=== PATIENT | male | born 2000 | race Caucasian/White ===

== ENCOUNTER 2022-04-17 13:04 | Inpatient (IN) | payer OTHER ==
[2022-04-17] MEDS ORDERED: ONDANSETRON 4 MG/2 ML VIAL IVPUSH ONE ×2 (14:26→18:25)
[2022-04-17] MEDS ORDERED: SODIUM CHLORIDE 0.9% 500 ML INFUS.BAG IV ONE ×3 (14:26→17:23)
[2022-04-17] MEDS ORDERED: ACETAMINOPHEN 1000 MG/100 ML BAG IVPB ONE (14:26)
[2022-04-17] MEDS ORDERED: ONDANSETRON 4 MG/2 ML VIAL ONE ×2 (14:49→18:35)
[2022-04-17] MEDS ORDERED: ACETAMINOPHEN INJECTION 100 ML IVPB ONE (14:49)
[2022-04-17 15:23] LABS: VENOUS BASE EXCESS -3.2 mmol/L (-2-2); VENOUS O2 SATURATION 49.9 % (70-80); VENOUS PCO2 35.3 mmHg (38-52); VENOUS PH 7.39 (7.310-7.410)
[2022-04-17 15:30] LABS: BASO % 0.2 % (0-2.0); HEMATOCRIT 48.4 % (35.4-49); HEMOGLOBIN 16.2 GM/dL (11.7-16.9); LYMPH % 4.1 % (8-40); MCH 29.5 pg (25.7-33.7); MCHC 33.5 g/dl (32.0-35.9); MEAN PLT VOLUME 10.2 fl (7.5-11.1); MONO % 7.2 % (3.8-10.2); NEUT % 88.5 % (42.8-82.8); PLATELET COUNT 197 10^3/uL (134-434); RDW 13.9 % (11.9-15.9); WHITE BLOOD COUNT 15.5 K/mm3 (4.0-10.0)
[2022-04-17 15:46] LABS: ALBUMIN 5.1 g/dl (3.4-5.0); BLOOD UREA NITROGEN 29.2 mg/dL (7-18); CALCIUM 9.9 mg/dL (8.5-10.1)
[2022-04-17 15:49] LABS: CREATININE 3.2 mg/dL (0.55-1.3)
[2022-04-17 15:51] LABS: BILIRUBIN,TOTAL 3.7 mg/dL (0.2-1); TOT PROT 8.4 g/dl (6.4-8.2)
[2022-04-17 18:59] LABS: BLOOD UREA NITROGEN 31.9 mg/dL (7-18)
[2022-04-17 19:02] LABS: CREATININE 3.4 mg/dL (0.55-1.3)
[2022-04-17 19:05] LABS: CALCIUM 8.2 mg/dL (8.5-10.1)
[2022-04-17 20:03] LABS: EPI CELLS 9 /uL (0-25.1); HYALINE CASTS 4 /uL (0-3.1); PH,URINE 5.5 (5.0-8.0); URINE APPEARANCE CLEAR; URINE BACTERIA 7 /uL (0-1359); URINE BILIRUBIN NEGATIVE (NEGATIVE); URINE COLOR YELLOW; URINE GLUCOSE (UA) NEGATIVE (NEGATIVE); URINE KETONE TRACE (NEGATIVE); URINE LEUK ESTERASE NEGATIVE (NEGATIVE); URINE NITRITE NEGATIVE (NEGATIVE); URINE PROTEIN 2+ (NEGATIVE); URINE RBC 5 /uL (0-23.9); URINE UROBILINOGEN 0.2 mg/dL (0.2-1.0); URINE WBC 39 /uL (0-25.8)
[2022-04-17 23:00] LABS: BASO % 0.5 % (0-2.0); HEMATOCRIT 40.7 % (35.4-49); LYMPH % 6.1 % (8-40); MCH 30.5 pg (25.7-33.7); MCHC 34.3 g/dl (32.0-35.9); MEAN CELL VOLUME 88.7 fl (80-96); MEAN PLT VOLUME 9.9 fl (7.5-11.1); MONO % 8.7 % (3.8-10.2); NEUT % 84.7 % (42.8-82.8); PLATELET COUNT 151 10^3/uL (134-434); RBC 4.58 M/mm3 (4.00-5.60); RDW 13.9 % (11.9-15.9); WHITE BLOOD COUNT 14.8 K/mm3 (4.0-10.0)
[2022-04-17 23:27] LABS: METHADONE, UR NEGATIVE (NEGATIVE)
[2022-04-17 23:28] LABS: OPIATES, URI NEGATIVE (NEGATIVE); PHENCYCLIDINE,URINE NEGATIVE (NEGATIVE); URINE BARBITURATES NEGATIVE (NEGATIVE)
[2022-04-17 23:29] LABS: URINE BENZODIAZEPINES NEGATIVE (NEGATIVE)
[2022-04-17 23:30] LABS: COCAINE, UR NEGATIVE (NEGATIVE); URINE AMPHETAMINES NEGATIVE (NEGATIVE)
[2022-04-18] MEDS: DEXTROSE 5%-NORMAL SALINE 1,000 ML IV SCH ×2 (00:40→10:17)
[2022-04-18 02:05] LABS: HIV INTERPRETATION NEGATIVE (NEGATIVE)
[2022-04-18] MEDS ORDERED: HEPARIN NA (PORCINE) 5,000 UNITS/ML 1ML VIAL ONE (06:03)
[2022-04-18] MEDS: HEPARIN NA (PORCINE) 5,000 UNITS/ML 1ML VIAL SQ SCH ×2 (06:04→13:34)
[2022-04-18 06:50] LABS: CALCIUM 8.2 mg/dL (8.5-10.1)
[2022-04-18 06:51] LABS: BLOOD UREA NITROGEN 38.1 mg/dL (7-18)
[2022-04-18 06:53] LABS: PHOSPHOROUS 5.5 mg/dL (2.5-4.9)
[2022-04-18 06:54] LABS: CREATININE 3.9 mg/dL (0.55-1.3)
[2022-04-18 06:55] LABS: BILIRUBIN,TOTAL 2.2 mg/dL (0.2-1)
[2022-04-18 07:19] LABS: ALBUMIN 3.7 g/dl (3.4-5.0); TOT PROT 6.2 g/dl (6.4-8.2)
[2022-04-18 07:27] LABS: BASO % 0.2 % (0-2.0); EOS % 0.1 % (0-4.5); HEMATOCRIT 40.3 % (35.4-49); HEMOGLOBIN 13.8 GM/dL (11.7-16.9); LYMPH % 8.2 % (8-40); MCH 30.6 pg (25.7-33.7); MCHC 34.3 g/dl (32.0-35.9); MEAN CELL VOLUME 89.2 fl (80-96); MEAN PLT VOLUME 10.2 fl (7.5-11.1); MONO % 9.6 % (3.8-10.2); NEUT % 81.9 % (42.8-82.8); PLATELET COUNT 150 10^3/uL (134-434); RBC 4.51 M/mm3 (4.00-5.60); RDW 13.9 % (11.9-15.9); WHITE BLOOD COUNT 12.9 K/mm3 (4.0-10.0)
[2022-04-18 10:40] VITALS: TEMP 98.9; BMI 20.7
[2022-04-18] MEDS ORDERED: SODIUM CHLORIDE 1,000 ML IV SCH (10:45)
[2022-04-18] MEDS ORDERED: MAG HYDROX/AL HYDROX/SIMETH 30 ML UNIT-DOSE CUP PO ONE (12:47)
[2022-04-18] MEDS ORDERED: LIDOCAINE VISCOUS 2% ORAL/TOP 15 ML UNIT-DOSE CUP MM ONE (12:47)
[2022-04-18] MEDS ORDERED: ONDANSETRON 4 MG/2 ML VIAL IVPUSH PRN (13:58)
[2022-04-18 14:23] VITALS: BP 117/72; PULSE 69
[2022-04-18 18:29] LABS: CHOLESTEROL 100 mg/dL (50-200); TRIGLYCERIDES 136 mg/dL (0-150)
[2022-04-18 18:30] LABS: LDL CHOLESTEROL (ONLY SJRH) 56 mg/dL (5-100)
[2022-04-18 18:31] LABS: HDL CHOLESTEROL 30 mg/dL (40-60)
[2022-04-18 19:09] LABS: CALCIUM 8.5 mg/dL (8.5-10.1)
[2022-04-18 19:10] LABS: ALBUMIN 4.1 g/dl (3.4-5.0)
[2022-04-18 19:13] LABS: CREATININE 3.3 mg/dL (0.55-1.3)
[2022-04-18 19:14] LABS: BILIRUBIN,TOTAL 2.1 mg/dL (0.2-1); TOT PROT 6.9 g/dl (6.4-8.2)
[2022-04-18] MEDS ORDERED: TRIMETHOBENZAMIDE HCL 200MG/2ML INJ IM ONE (20:01)
[2022-04-21 11:09] LABS: ANTIGLOMERULAR BASEMENT MEN.AB 6 units (0-20)
[2022-04-21 16:09] LABS: ATYPICAL pANCA <1:20 titer (Neg:<1:20); C-ANCA <1:20 titer (Neg:<1:20)
== END 2022-04-19 18:26 | disposition home or self-care (01) | DRG 469 ==
LOC: EDBD → JER 13:04 → EDUNIT# 21:49 → JERBED 21:49 → J7W 04-18 10:06 → J8W 04-18 12:28
PROVIDERS: ADMIT Internal Medicine
DX: N17.9 Acute kidney failure, unspecified (principal); T75.1XXA Unspecified effects of drowning and nonfatal submersion, initial encounter; W16.111A Fall into natural body of water striking water surface causing drowning and submersion, initial encounter; Y92.828 Other wilderness area as the place of occurrence of the external cause; R11.2 Nausea with vomiting, unspecified; D72.829 Elevated white blood cell count, unspecified; E80.6 Other disorders of bilirubin metabolism
CPT/HCPCS: 0241U-QW; 36415; 71045-TC-FY; 76705-TC; 76775-TC; 80048; 80053; 80061; 80307; 81003; 82306; 82550; 82553; 82570; 82607; 82728; 82747; 82803; 83036; 83516; 83520; 83540; 83550; 83605; 83970; 84100; 84156; 84484; 85014; 85025; 85045; 86038; 86160; 86225; 86256; 86704; 86705; 86803; 87040; 87340; 87389; 87517; 93005; 93010; 99285-25; J1644